=== PATIENT | male | born 1950 | race Caucasian/White ===

== ENCOUNTER 2018-01-05 19:25 | Emergency (ER) | payer MEDICARE, BC ==
[2018-01-05 20:09] VITALS: BP 122/72; PULSE 85; RESP 18; TEMP 98.2
--- NOTE | 2018-01-05 21:05 | XR ---
EXAMINATION TYPE: XR finger LT DATE OF EXAM: 01/05/2018 COMPARISON: NONE HISTORY: First digit/thumb left hand laceration. TECHNIQUE: 3 views of the left thumb/first digit were obtained. FINDINGS: Laceration is seen of the distal aspect of the first digit with only minimal distal soft ti ssue prominence. No osseous laceration, fracture, or dislocation is seen of the thumb. No radiopaque foreign body. IMPRESSION: No evidence of acute fracture, dislocation or radiopaque foreign body of the left thumb.
[2018-01-05] MEDS ORDERED: LIDOCAINE 1% INJ 10MG/ML (20 ML MDV) SQ ONE (21:33)
[2018-01-05] MEDS ORDERED: DIPH,PERTUS(ACELL)TETVAC-LF 0.5 ML VIAL IM ONE (21:33)
[2018-01-05] MEDS ORDERED: IBUPROFEN 600 MG TAB PO STA (22:12)
--- NOTE | 2018-01-05 22:13 | ED ---
Skin/Abscess/FB HPI - General Chief complaint: Skin/Abscess/Foreign Body Stated complaint: Lac/Thumb Time Seen by Provider: 01/05/18 20:12 Source: patient, RN notes reviewed Mode of arrival: ambulatory Limitations: no limitations - History of Present Illness Initial comments: This is a 68-year-old male with past medical history of type 2 diabetes who presents today for chief complaint of laceration to the the tip of the left thumb. Patient states that about 2 hours ago he was chopping wood using a wrench and sledgehammer, when he had his hand, the word he accidentally hit the tip of his thumb with the sledgehammer. It was not a full swing. Patient admitted to immediate pain in the tip of the left thumb and bleeding from a laceration. Patient notes that then tip of the nail was cracked. Patient had his [id number] bring him to the emergency department. Patient cannot recall his last tetanus shot. Patient denies any numbness, tingling, paresthesias, loss of range of motion, muscle weakness or loss of sensation of the digits of the hands bilaterally. Patient denies color change of the left thumb. Patient denies any recent fever, chills, shortness of breath, chest pain , back pain, abdominal pain, nausea or vomiting, numbness or tingling, dysuria or hematuria, constipation or diarrhea, headaches or visual changes, or any other complaints. - Related Data Allergies Allergy/AdvReac Type Severity Reaction Status Date / Time No Known Allergies Allergy Verified 01/05/18 20:07 Review of Systems ROS Statement: Those systems with pertinent positive or pertinent negative responses have been documented in the HPI. ROS Other: All systems not noted in ROS Statement are negative. Constitutional: Denies: fever, chills Eyes: Denies: eye pain Respiratory: Denies: cough Cardiovascular: Denies: chest pain, palpitations Gastrointestinal: Denies: abdominal pain, nausea, vomiting, diarrhea, constipation Genitourinary: Denies: urgency, dysuria Musculoskeletal: Denies: back pain Skin: Reports: as per HPI Neurological: Denies: headache, weakness, numbness, paresthesias, confusion, abnormal gait Past Medical History Past Medical History: Diabetes Mellitus Past Surgical History: Orthopedic Surgery Past Psychological History: No Psychological Hx Reported Smoking Status: Former smoker Past Alcohol Use History: None Reported Past Drug Use History: None Reported General Exam - General Exam Comments Initial Comments: General: The patient is awake and alert, in no distress, and does not appear acutely ill. Eye: Pupils are equal, round and reactive to light, extra-ocular movements are intact. No nystagmus. There is normal conjunctiva bilaterally. No signs of icterus. Ears, nose, mouth and throat: There are moist mucous membranes and no oral lesions. Neck: The neck is supple, there is no tenderness or JVD. Cardiovascular: There is a regular rate and rhythm. No murmur, rub or gallop is appreciated. Respiratory: Lungs are clear to auscultation, respirations are non-labored, breath sounds are equal. No wheezes, stridor, rales, or rhonchi. Musculoskeletal: Normal ROM at the MCP, PIP, DIP joints with 5 out of 5 muscle testing of the hands bilaterally, no tenderness over the joints. Sensation intact of the digits of the hands bilaterally equally. Pulses equal bilaterally 2+ radial & ulnar. Capillary refill less than 2 seconds. No pallor, compartments of the fingers and hand appear compressible. Neurological: A&O x 3. CN II-XII intact, There are no obvious motor or sensory deficits. Coordination appears grossly intact. Speech is normal. Skin: Skin is warm and dry and no rashes. Partial avulsion laceration to the tip of the left thumb, this appears very superficial in nature, there is a superficial laceration through the very tip of the left thumb nail bed, the distal 1/6 of the left thumbnail is cracked, no subungual hematoma. No evidence of exposure of underlying structures or bone. Psychiatric: Cooperative, appropriate mood & affect, normal judgment. Limitations: no limitations Course Vital Signs 01/05/18 20:07 Temperature 98.2 F Pulse Rate 85 Respiratory 18 Rate Blood Pressure 122/72 O2 Sat by Pulse 98 Oximetry Procedures - Laceration Laceration #1 Consent Obtained: verbal consent Time Out Performed: Yes Site: hand (Left thumb) Description: avulsion, clean Depth: simple, single layer Anesthetic Used: lidocaine 1% Anesthesia Technique: local infiltration Amount (mls): 5 Pre-repair: wound explored, irrigated extensively, deep structures intact Type of Sutures: nylon Size of Sutures: 5-0 Number of Sutures: 1 Technique: simple, interrupted Patient Tolerated Procedure: no complications Additional Comments: Wound edges approximate well, the distal portion of the left thumbnail that was cracked was still adhered to the nailbed. The nail was cut back but not removed. There was a very superficial laceration to the distal 16 of the left thumbnail bed, that did not require repair by suture. Medical Decision Making - Medical Decision Making 68-year-old male with past medical history of diabetes with cc of left thumb laceration. Partial avulsion of left thumb, irrigated extensively explored. X- ray of the left thumb was obtained to rule out any open fracture. Return negative. One suture was placed to approximate the wound edges of the avulsion laceration using sterile laceration repair procedure. Patient tolerated the procedure well. Patient was discharged with close follow-up with PCP for wound check. Case was discussed in detail with Dr. Gallardo. Patient was given a dose of ibuprofen 600 for pain management. Patient was discharged in stable condition. Patient instructed to return to emergency department for signs of dehiscence, delayed wound healing or infection. Patient was instructed to return to the emergency department for suture removal in 7 days. Patient agreed plan. Disposition Clinical Impression: Laceration of left thumb with damage to nail Disposition: HOME SELF-CARE Condition: Good Instructions: Care For Your Stitches (ED), Laceration (ED) Additional Instructions: Please use over the counter pain medication as needed, as discussed. Please follow-up with family doctor in the next 2 days for wound check. Please return to emergency department for suture removal in 7 days. Please return to emergency room if the symptoms increase or worsen or for any other concerns. Is patient prescribed a controlled substance at d/c from ED?: No Referrals: Cristóbal Cordoba MD [Primary Care Provider] - 1-2 days Time of Disposition: 22:12
--- NOTE | 2018-01-08 01:14 | CDI ---
Dear Jack Gallardo DO: Please do addendum length of the laceration repaired. Thank you, Azalea Peng, Service Car Operator. If you have any questions, please contact [facility] at [phone]. Please forward questions to physician mechanic's assistant Adrianna key regarding documentation on this case. MARTINA
== END 2018-01-05 22:26 | disposition home or self-care (01) ==
LOC: EC 19:25
DX: S61.112A Laceration without foreign body of left thumb with damage to nail, initial encounter (principal); Z23 Encounter for immunization; Z87.891 Personal history of nicotine dependence; W27.8XXA Contact with other nonpowered hand tool, initial encounter; Y93.89 Activity, other specified
CPT/HCPCS: 99283 ×2; 12001 ×2; 90471 ×2; 73140; 90715; J2001